=== PATIENT | female | born 1960 | race Caucasian/White ===

== ENCOUNTER 2023-10-21 08:17 | Day surgery (SDC) | payer BC ==
--- NOTE | 2023-10-20 14:02 | EKG ---
Test Date: 2023-10-19 Test Time: 15:50:14 [employer]: CAROL MEASUREMENT RESULTS: Intervals: Rate: 88 NC: 164 QRSD: 82 QT: 344 QTc: 416 [place]: P: 75 NC: 164 QRS: 34 T: 63 INTERPRETIVE STATEMENTS: Normal sinus rhythm Normal ECG No previous ECG available for comparison Electronically Signed On 10-20-23 13:59:36 CDT by Toro Rutherford
[2023-10-21] MEDS: Ringers Lactate 1,000 ML IV ONE (08:30)
[2023-10-21] MEDS ORDERED: MIDAZOLAM HCL 2 MG/2 ML INJ ONE (09:53)
[2023-10-21] MEDS ORDERED: LIDOCAINE 2% MPF 5 ML VIAL ONE (09:53)
[2023-10-21] MEDS ORDERED: FENTANYL CITR 100 MCG/2 ML ONE ×2 (09:53→12:58)
[2023-10-21] MEDS ORDERED: propofoL 200 MG/20 ML VIAL IV ONE (09:53)
[2023-10-21] MEDS ORDERED: ROCURONIUM 50 MG/5 ML VIAL IV ONE (09:53)
[2023-10-21] MEDS ORDERED: ONDANSETRON 4 MG/2 ML VIAL ONE (09:53)
[2023-10-21] MEDS: CEFOXITIN SODIUM 2 GM/VIAL ONE (10:40)
[2023-10-21] MEDS: LIDOCAINE HCL/EPINEPHRINE 20 ML MDV ONE (10:40)
[2023-10-21] MEDS ORDERED: dexAMETHasone 10 MG/ML VIAL ONE (11:29)
[2023-10-21] MEDS ORDERED: NEOSTIGMINE 1 MG/ML -10 ML VIAL ONE (13:04)
[2023-10-21] MEDS ORDERED: GLYCOPYRROLATE 0.2 MG/ML SYR ONE (13:04)
--- NOTE | 2023-10-21 13:10 | P.OP ---
Preoperative diagnosis: Chronic Cholecystitis with Cholelithiasis Postoperative diagnosis: Chronic Cholecystitis with Cholelithiasis Primary procedure: Laparoscopic Cholecystectomy with ICG Anesthesia: GETA + Local Estimated blood loss: <5cc Specimen: Gallbladder Findings: Severe Adhesions, colon, duodenum fixed to GB, Complications: None Implants: Tony Hemostatic Powder Transferred to: Recovery Room Condition: Good
[2023-10-21] MEDS ORDERED: Ringers Lactate 1,000 ML IV ONE (13:18)
[2023-10-21] MEDS: HYDROMORPHONE HCL 1 MG/ML INJ ONE ×2 (13:38→13:50)
[2023-10-21] MEDS: FENTANYL CITR 100 MCG/2 ML ONE (14:15)
[2023-10-21 15:50] VITALS: BP 121/60; TEMP 97.7
[2023-10-21] MEDS: ONDANSETRON 4 MG (ODT) TAB ONE (16:03)
[2023-10-21 16:54] VITALS: O2SAT 97
--- NOTE | 2023-10-21 23:20 | OP ---
Date of Procedure: 10/21/2023 Surgeon: Rajesh Card MD, Preoperative Diagnosis: Chronic cholecystitis with cholelithiasis. Postoperative Diagnosis: Chronic cholecystitis with cholelithiasis. Procedure Performed: Laparoscopic cholecystectomy with indocyanine green cholangiography. Anesthesia: General endotracheal plus local with 0.25% Marcaine. Estimated Blood Loss: Less than 5 mL. Specimen: Gallbladder. Findings: Severe adhesions between the gallbladder and the omentum as well as the gallbladder to the right colon at the hepatic flexure as well as the duodenum on the medial aspect to the medial aspect of the gallbladder. Additionally, there was a very short cystic duct. The indocyanine green cholan giography was minimally perfused into the cystic duct, common duct confluence, but not into the subst ance of the gallbladder. Complications: None. Implants: Tony hemostatic powder. Disposition: The patient was transferred to the recovery room in good condition. Procedure In Detail: After informed consent was obtained, the patient was brought to the operating r oom, prepped and draped in the usual sterile fashion. After adequate anesthesia was achieved, I anes thetized an area of the supraumbilical position down to subcutaneous tissue. A 5 mm 0-degree optical trocar was introduced in the abdomen without incident or complication. Insufflation was obtained to 15 mmHg, at this time. There was no injury to vital structures upon entry into the abdomen. Two ad ditional trocars were placed, 1 in the epigastrium and 1 in the right upper quadrant. Both of these were similarly anesthetized, sharply incised. A 5 mm trocar was placed under direct visualization wi thout incident or complication. At this point, the umbilical trocar was then upsized to a 12 mm unde r direct visualization without incident or complication. The patient was positioned in the head up r ight-side up position. Ratcheted grasper was used to grasp the patient's gallbladder, placed toward the patient's right shoulder. However, I had difficulty accessing the gallbladder as there were sign ificant severe adhesions and as such, I grabbed the omental attachments off the top and used electroc autery to dissect this free as blunt dissection was unable to separate this tissue from the gallbladd er. After I was able to grasp the fundus of the gallbladder, there were severe thick adhesions and a thick inflammatory rind over the surface of the gallbladder. Additionally, as I continued to dissec t down removing the omentum from the surface of the gallbladder using a combination electrocautery, b eliel dissection, and LigaSure device, I visualized the right hepatic flexure in close apposition to t he lateral aspect of the gallbladder. I used meticulous dissection to separate the structures includ ing the LigaSure to optimally separate this down. In addition, on the medial aspect, I then continue d my dissection medially. I discovered the duodenum was in firm apposition also to the medial aspect of the gallbladder completely covering the anterior surface of the cystic duct, common duct confluen ce up to the Orlando's pouch of the gallbladder. I had to perform meticulous dissection to separate the duodenum as this was also necessary due to the thick fibrous adhesions, which were evident in th is area. After this was all , I continued dissection of the gallbladder to skeletonize the gallbladder making visualization of 2 structures identified as both the cystic duct and cystic artery , which were in slightly aberrant position, in that there was a short cystic duct and the cystic mallory ry sat just medial almost on top of the cystic duct. As such, I encircled and skeletonized these 2 s tructures. I cleared the posterior structures and skeletonized everything in the posterior window al lowing for visualization of the liver at this point. After this was performed, critical view of safe ty was obtained at this point. indocyanine green cholangiography was performed and only showed the c ystic duct, common duct confluence, but no filling of the cystic duct was appreciated even with manip ulation. At this point, I placed a double titanium clips doubly on the proximal side of the cyst, si ngly on the distal side of both cystic duct, cystic artery, ligated these 2 structures, removed the h epatic fossa. There required a significant amount of hepatic fulguration as there were thick adhesio ns even on the posterior surface and a thick inflammatory rind with dense tissue making separation of the gallbladder from the hepatic fossa somewhat challenging. After the gallbladder was removed, it was placed in EndoCatch bag and removed the umbilical trocar, with several stones it did fall out fro m the fundus of the gallbladder after an opening was made at this point. The stones were also placed EndoCatch bag and removed the umbilical trocar, sent off for pathologic examination. At this point, the abdomen was re-insufflated. I irrigated the area copiously with approximately 1.5 to 2 L of flu id until completely clear. No additional hemostatic measures required at this point, I performed ind ocyanine green cholangiography, showed no leakage of bile and clips were found to be in good anatomic position at the end of the procedure, I then suctioned out the remaining effluent. The patient was positioned back in neutral position, remaining effluent was suctioned out. I then sprayed Tony hem ostatic powder into the subhepatic space over this area for additional assurance of hemostasis in the perioperative period. At this point, the 12 mm trocar site was closed using a Robson-Teto sutur e passer with 0 Vicryl in an interrupted fashion with good approximation of tissues. The abdomen was desufflated under direct visualization with incident or complication. Remainder of the trocars were removed. All skin incisions were then copiously irrigated and closed with a 4-0 Monocryl in a runni ng fashion. Dermabond was placed over top. The patient tolerated the procedure well without inciden t or complication, transferred to PACU in good condition. All counts were correct at the end of the case. MARCUS/JUSTINO Voice ID: [id number] Report ID: [id number]
== END 2023-10-21 16:09 | disposition home or self-care (01) ==
LOC: OR 08:17
PROVIDERS: ATTEND Surgery
PROC: BF50200 Other Imaging of Bile Ducts using Fluorescing Agent, Indocyanine Green Dye, Intraoperative (ICD-10-PCS; 2023-10-21)
PROC: 0FT44ZZ Resection of Gallbladder, Percutaneous Endoscopic Approach (ICD-10-PCS; principal; 2023-10-21 10:15)
DX: K80.12 Calculus of gallbladder with acute and chronic cholecystitis without obstruction (principal); E78.00 Pure hypercholesterolemia, unspecified
CPT/HCPCS: 93005; 88304; 47563; Q0162; J2704; J2710; J2001; J2250; J3010 ×3; J1100; J1170 ×2; J0694; J2405; J7120 ×2